=== PATIENT | female | born 1990 | race Caucasian/White ===

== ENCOUNTER 2022-04-12 19:30 | Inpatient (IN) | payer OTHER ==
[2022-04-12] MEDS: DEXTROSE 5%-LACTATED RINGERS 1,000 ML IV SCH (21:30)
[2022-04-12 21:53] LABS: BASO % 0.8 % (0-2.0); EOS % 0.3 % (0-4.5); HEMATOCRIT 36.8 % (32.4-45.2); HEMOGLOBIN 13.1 GM/dL (10.7-15.3); MCH 30.4 pg (25.7-33.7); MCHC 35.6 g/dl (32.0-36.0); MEAN CELL VOLUME 85.3 fl (80-96); MEAN PLT VOLUME 9.3 fl (7.5-11.1); MONO % 7.8 % (3.8-10.2); NEUT % 74.1 % (42.8-82.8); PLATELET COUNT 225 10^3/uL (134-434); RBC 4.31 M/mm3 (3.60-5.2); RDW 14.8 % (11.6-15.6); WHITE BLOOD COUNT 8.9 K/mm3 (4.0-10.0)
[2022-04-12 22:12] LABS: CALCIUM 8.7 mg/dL (8.5-10.1)
[2022-04-12 22:13] LABS: BLOOD UREA NITROGEN 11.8 mg/dL (7-18)
[2022-04-12 22:16] LABS: CREATININE 0.5 mg/dL (0.55-1.3)
[2022-04-12 22:20] LABS: INR 0.91 (0.83-1.09); PROTHROMBIN TIME (PATIENT) 10.5 SEC (9.7-13.0)
[2022-04-12] MEDS: MISOPROSTOL 100 MCG TABLET PV SCH (22:23)
[2022-04-12 22:24] LABS: ACTIVATED PTT 23.8 SECONDS (25.2-36.5)
[2022-04-12 22:37] VITALS: BMI 24.3
[2022-04-12 22:42] LABS: INR 1.35 (0.83-1.09); PROTHROMBIN TIME (PATIENT) 15.6 SEC (9.7-13.0)
[2022-04-12 23:07] LABS: HIV INTERPRETATION NEGATIVE (NEGATIVE)
[2022-04-13] MEDS: DEXTROSE 5%-LACTATED RINGERS 1,000 ML IV SCH (05:00)
[2022-04-13] MEDS: MISOPROSTOL 100 MCG TABLET PV SCH ×5 (06:00→21:28)
[2022-04-13] MEDS ORDERED: OXYTOCIN 30 UNITS in 0.9% NS 30 UNIT/500 ML INFUS.BAG IVPB SCH (10:00)
[2022-04-13] MEDS ORDERED: morphine SULFATE 4 MG/ML VIAL ONE (10:17)
[2022-04-13] MEDS: morphine SULFATE 4 MG/ML VIAL IVPB ONE ×2 (10:20→12:31)
[2022-04-13] MEDS ORDERED: FENTANYL/BUPIVACAINE/NS/PF - PCEA - 50 ML DISP.SYRIN EP ONE (11:30)
[2022-04-13] MEDS ORDERED: SODIUM CHLORIDE 1,000 ML IV STA ×2 (11:52→17:57)
[2022-04-13] MEDS ORDERED: NALOXONE HCL 0.4 MG/ML VIAL IVPUSH PRN (12:17)
[2022-04-13] MEDS ORDERED: OXYTOCIN 30 UNITS in 0.9% NS 30 UNIT/500 ML INFUS.BAG IVPB ONE (12:25)
[2022-04-13] MEDS ORDERED: FENTANYL/BUPIVACAINE/NS/PF - PCEA - 50 ML DISP.SYRIN EP SCH (12:30)
[2022-04-13] MEDS ORDERED: OXYTOCIN 20 UNITS in 0.9% NS 20 UNIT/1,000 ML INFUS.BAG IV ONE (13:42)
[2022-04-13] MEDS ORDERED: BENZOCAINE 28 GM HEMORRHOIDAL OINTMENT TP PRN (17:46)
[2022-04-13] MEDS ORDERED: ACETAMINOPHEN 325 MG TABLET (FP) PO PRN (17:46)
[2022-04-13] MEDS ORDERED: OXYTOCIN 20 UNITS in 0.9% NS 20 UNIT/1,000 ML INFUS.BAG IV SCH (18:00)
[2022-04-13 19:36] LABS: CORD BASE EXCESS -8.5 mmol/L (0-2); CORD HCO3 19.5 mmHg (20-29); CORD PCO2 48.7 mmHg (30-78); CORD pH 7.22 (7.14-7.44)
[2022-04-13 19:37] LABS: CORD BASE EXCESS -5.6 mmol/L (0-2); CORD PCO2 49.7 mmHg (30-78); CORD pH 7.263 (7.14-7.44)
[2022-04-13] MEDS: IBUPROFEN 600 MG TABLET (FP) PO PRN (20:30)
[2022-04-13] MEDS ORDERED: IBUPROFEN 600 MG TABLET (FP) PO ONE (20:39)
[2022-04-13] MEDS: BENZOCAINE 20% 57 GM BOTTLE TP PRN (21:28)
[2022-04-13] MEDS: WITCH HAZEL 50% (TUCKS) 40 PAD/JAR PAD TP PRN (21:29)
[2022-04-14] MEDS: IBUPROFEN 600 MG TABLET (FP) PO PRN ×3 (01:15→17:57)
[2022-04-14 09:30] LABS: BASO % 0.1 % (0-2.0); EOS % 0.2 % (0-4.5); HEMATOCRIT 25.9 % (32.4-45.2); HEMOGLOBIN 9.1 GM/dL (10.7-15.3); LYMPH % 11.7 % (8-40); MCHC 35.2 g/dl (32.0-36.0); MEAN CELL VOLUME 85.4 fl (80-96); MEAN PLT VOLUME 8.6 fl (7.5-11.1); MONO % 6.6 % (3.8-10.2); NEUT % 81.4 % (42.8-82.8); PLATELET COUNT 180 10^3/uL (134-434); RBC 3.04 M/mm3 (3.60-5.2); RDW 14.5 % (11.6-15.6); WHITE BLOOD COUNT 10.3 K/mm3 (4.0-10.0)
[2022-04-14] MEDS: FERROUS SO4 325 MG TABLET (FP) PO SCH ×2 (12:48→17:57)
[2022-04-14] MEDS ORDERED: SENNOSIDES/DOCUSATE COMBO (SENNA PLUS) TABLET (UD) PO PRN (22:00)
[2022-04-14] MEDS: WITCH HAZEL 50% (TUCKS) 40 PAD/JAR PAD TP PRN (22:25)
[2022-04-14] MEDS: BENZOCAINE 20% 57 GM BOTTLE TP PRN (22:25)
[2022-04-15] MEDS: FERROUS SO4 325 MG TABLET (FP) PO SCH ×2 (08:14→12:13)
[2022-04-15 08:35] VITALS: BP 93/56; PULSE 97; RESP 16; TEMP 98.5
== END 2022-04-15 16:06 | disposition home or self-care (01) | DRG 560 ==
LOC: JLDR 19:30 → J3W 04-13 21:03
PROVIDERS: ADMIT Obstetrics & Gynecology Maternal & Fetal Medicine; ATTEND Obstetrics & Gynecology Maternal & Fetal Medicine
PROC: 10D07Z6 Extraction of Products of Conception, Vacuum, Via Natural or Artificial Opening (ICD-10-PCS; principal; 2022-04-13)
PROC: 0W8NXZZ Division of Female Perineum, External Approach (ICD-10-PCS; 2022-04-13)
DX: O34.93 Maternal care for abnormality of pelvic organ, unspecified, third trimester (principal); O34.03 Maternal care for unspecified congenital malformation of uterus, third trimester; Q51.3 Bicornate uterus; Z3A.39 39 weeks gestation of pregnancy; Z37.0 Single live birth; O90.81 Anemia of the puerperium
CPT/HCPCS: 36415; 36600; 59409; 80048; 82803; 85025; 85610; 85730; 86780; 86850; 86900; 86901; 87389; 88307-TC; C9803-CS; U0003; U0005